=== PATIENT | female | born 1965 | race Caucasian/White ===

== ENCOUNTER 2025-08-20 07:56 | Outpatient (CLI) | payer BC, SELFPAY | END 2025-08-20 07:57 | disposition home or self-care (01) | LOC: AMB 08-24 16:01 | PROVIDERS: PCP Family Medicine; Visit Provider Emergency Medicine | DX: S89.91XA Unspecified injury of right lower leg, initial encounter (principal); W00.2XXA Other fall from one level to another due to ice and snow, initial encounter; Y92.9 Unspecified place or not applicable | CPT/HCPCS: A0425; A0427 ==

== ENCOUNTER 2025-08-20 08:29 | Emergency (ER) | payer BC, SELFPAY ==
[2025-08-20] VITALS (33 sets, daily range): BP systolic 113–149; BP diastolic 57–91; PULSE 56–73; RESP 7–26; TEMP 36.6; O2SAT 96–100; BMI 26.6
--- NOTE | 2025-08-20 08:55 | CRLHL7_ITS ---
For Patients: As a result of the Century Cures Act, medical imaging exams and procedure reports are released immediately into your electronic medical record. You may view this report before your referring provider. If you have questions, please contact your health care provider. Indication: Injury of right ankle. Technique: Right ankle 2 views. Comparison: None. Findings: Bones: Acute spiral fracture of the distal fibula with posterior displacement of the distal fracture fragment. Acute transverse fracture of the medial malleolus with anterior translation of the distal tibia relative to the talus measuring approximately 13 mm. The talar dome is intact. Plantar calcaneal enthesophyte. Joint spaces: Widening of the syndesmosis up to 9 mm.. Soft tissues: Moderate soft tissue swelling about ankle.. Impression: Hall type B distal fibular and medial malleolar fracture with anterior translocation of the tibiotalar joint and widening of the syndesmosis. Dictated by Ya Levi MD @ 08/20/2025 9:53:58 AM (Electronically Signed)
[2025-08-20] MEDS: 0.9 % SODIUM CHLORIDE 500 ML 500 ML IV (09:05)
--- NOTE | 2025-08-20 11:21 | ED.GENADULT ---
HPI - General Adult General Chief complaint: Extremity Pain/Injury, Lower <Pavan Sierra MD - Last Filed: 08/23/25 17:42> Stated complaint: R ankle injury <Pavan Sierra MD - Last Filed: 08/23/25 17:42> Time Seen by Provider: 08/20/25 08:33 <Pavan Sierra MD - Last Filed: 08/23/25 17:42> History of Present Illness HPI narrative: Pt was walking with other women in [place], slipped on ice but didn't fall , friends did assist to ground. Pt presents with RLE injury, still wearing boot. 25 intranasal fent and 4mg odt zofran admin by ems. Pt not allergic to pain medication but says she will vomit if we admin them. Only Rx is minoxidil/ finesteride for hair growth. 60-year-old woman brought to the emergency department via EMS after a slip and presumed right ankle injury. Was assisted to the ground by her friends with whom she had been walking. Slipped on ice apparently. Is evident that she has some outward rotation at the right ankle. Denies any other injuries. Pain in this right lower leg. No chest pain shortness of breath. She is clear that she did not hit her head. Has received fentanyl and Zofran. <Pavan Sierra MD - Last Filed: 08/23/25 17:42> Related Data Home medications: Previous Rx's ?Medication ?Instructions ?Recorded hydrocodone 5 mg-acetaminophen 325 1 - 2 tab PO Q4-6H PRN pain #15 08/20/25 mg tablet tabs ondansetron 4 mg disintegrating 4 mg PO Q4H PRN nausea and 08/20/25 tablet vomiting #12 tabs <Pavan Sierra MD - Last Filed: 08/23/25 17:42> Allergies/adverse reactions: Allergies Allergy/AdvReac Type Severity Reaction Status Date / Time Sulfa (Sulfonamide Allergy Verified 10/29/23 16:29 Antibiotics) <Pavan Sierra MD - Last Filed: 08/23/25 17:42> Review of Systems Status of ROS: Reports: 6 or more systems reviewed and unremarkable except as noted in History and below <Pavan Sierra MD - Last Filed: 08/23/25 17:42> PFSH [facility] Medical History: Medical History Plantar fascial fibromatosis ?M72.2 - Plantar fascial fibromatosis (ICD-10) Adenomatous colon polyp ?D12.6 - Benign neoplasm of colon, unspecified (ICD-10) Hypercholesteremia ?E78.00 - Pure hypercholesterolemia, unspecified (ICD-10) <Pavan Sierra MD - Last Filed: 08/23/25 17:42> Surgical History: Surgical History Hx of cervical polypectomy (12/2004) ?Z98.890 - Other specified postprocedural states (ICD-10) ?Z87.42 - Personal history of other diseases of the female genital tract (ICD-10) Previous section (1990) ?Z98.891 - History of uterine scar from previous surgery (ICD-10) Status post left foot surgery ?Z98.890 - Other specified postprocedural states (ICD-10) <Pavan Sierra MD - Last Filed: 08/23/25 17:42> Social History: Social History Smoking Status: Never smoker How often do you have a drink containing alcohol: monthly or less AUDIT-C Alcohol total score: 1 Non-prescribed substance use: denies use <Pavan Sierra MD - Last Filed: 08/23/25 17:42> Exam Narrative: Exam Narrative: Pleasant. Little sleepy perhaps. Head looks to be atraumatic. Heart in regular rate and rhythm. Lungs are clear. No pain to palpation of the extremities other than the right lower leg. Ankle with boots on on initial evaluation is outwardly rotated. Any manipulation of this does cause pain response. Oropharynx is a little sticky but unremarkable. No restriction of the posterior oropharynx. Examination later of the skin does show ankle swelling and deformity. There is some tenting of the skin in the medial malleolus. No breakdown in the skin <Pavan Sierra MD - Last Filed: 08/23/25 17:42> Const: Vital Signs, click to edit/add: Vital Signs - 24 hr 08/20/25 08:34 08/20/25 08:57 08/20/25 09:24 Temperature 97.8 F Pulse Rate 63 Pulse Rate [Left P ulse Oximeter] 73 Respiratory Rate 16 16 Blood Pressure 138/67 Blood Pressure [Le ft Upper Arm] 149/73 H Pulse Oximetry 100 99 98 Oxygen Delivery Me thod Room Air Room Air 08/20/25 09:25 08/20/25 09:30 08/20/25 09:41 Temperature Pulse Rate 63 60 57 L Pulse Rate [Left P ulse Oximeter] Respiratory Rate Blood Pressure 129/78 Blood Pressure [Le ft Upper Arm] Pulse Oximetry 99 99 99 Oxygen Delivery Me thod Room Air 08/20/25 09:45 08/20/25 10:00 Temperature Pulse Rate 56 L 56 L Pulse Rate [Left P ulse Oximeter] Respiratory Rate Blood Pressure Blood Pressure [Le ft Upper Arm] Pulse Oximetry 99 99 Oxygen Delivery Me thod <Pavan Sierra MD - Last Filed: 08/23/25 17:42> Vital Signs, click to edit/add: Vital Signs - 24 hr 08/20/25 08:34 08/20/25 08:57 08/20/25 09:24 Temperature 97.8 F Pulse Rate 63 Pulse Rate [Left P ulse Oximeter] 73 Respiratory Rate 16 16 Blood Pressure 138/67 Blood Pressure [Le ft Upper Arm] 149/73 H Pulse Oximetry 100 99 98 Oxygen Delivery Me thod Room Air Room Air 08/20/25 09:25 08/20/25 09:30 08/20/25 09:41 Temperature Pulse Rate 63 60 57 L Pulse Rate [Left P ulse Oximeter] Respiratory Rate Blood Pressure 129/78 Blood Pressure [Le ft Upper Arm] Pulse Oximetry 99 99 99 Oxygen Delivery Me thod Room Air 08/20/25 09:45 08/20/25 10:00 Temperature Pulse Rate 56 L 56 L Pulse Rate [Left P ulse Oximeter] Respiratory Rate Blood Pressure Blood Pressure [Le ft Upper Arm] Pulse Oximetry 99 99 Oxygen Delivery Me thod <Shiraz Roberson MD - Last Filed: 08/25/25 18:29> Documenting provider has reviewed patient's vital signs: yes <Pavan Sierra MD - Last Filed: 08/23/25 17:42> Course Vital Signs Vital signs: Initial Vital Signs Temperature 97.8 F 08/20/25 08:34 Temperature Source Temporal Artery Scan 08/20/25 08:34 Pulse Rate 73 08/20/25 08:34 Respiratory Rate 16 08/20/25 08:34 Blood Pressure 149/73 H 08/20/25 08:34 Blood Pressure Mean 98 08/20/25 08:34 Blood Pressure Position Supine 08/20/25 08:34 Pulse Oximetry 100 08/20/25 08:34 Oxygen Delivery Method Room Air 08/20/25 08:34 Vital Signs Temperature 97.8 F 08/20/25 08:34 Pulse Rate 73 08/20/25 08:34 Respiratory Rate 16 08/20/25 08:34 Blood Pressure 149/73 H 08/20/25 08:34 Pulse Oximetry 100 08/20/25 08:34 Oxygen Delivery Method Room Air 08/20/25 08:34 Temperature 97.8 F 08/20/25 08:34 Pulse Rate 70 08/20/25 12:47 Respiratory Rate 10 L 08/20/25 12:47 Blood Pressure 133/79 08/20/25 12:47 Pulse Oximetry 100 08/20/25 12:47 Oxygen Delivery Method Room Air 08/20/25 12:02 Oxygen Flow Rate 4 08/20/25 11:42 <Pavan Sierra MD - Last Filed: 08/23/25 17:42> Initial Vital Signs Temperature 97.8 F 08/20/25 08:34 Temperature Source Temporal Artery Scan 08/20/25 08:34 Pulse Rate 73 08/20/25 08:34 Respiratory Rate 16 08/20/25 08:34 Blood Pressure 149/73 H 08/20/25 08:34 Blood Pressure Mean 98 08/20/25 08:34 Blood Pressure Position Supine 08/20/25 08:34 Pulse Oximetry 100 08/20/25 08:34 Oxygen Delivery Method Room Air 08/20/25 08:34 Vital Signs Temperature 97.8 F 08/20/25 08:34 Pulse Rate 73 08/20/25 08:34 Respiratory Rate 16 08/20/25 08:34 Blood Pressure 149/73 H 08/20/25 08:34 Pulse Oximetry 100 08/20/25 08:34 Oxygen Delivery Method Room Air 08/20/25 08:34 Temperature 97.8 F 08/20/25 08:34 Pulse Rate 70 08/20/25 12:47 Respiratory Rate 10 L 08/20/25 12:47 Blood Pressure 133/79 08/20/25 12:47 Pulse Oximetry 100 08/20/25 12:47 Oxygen Delivery Method Room Air 08/20/25 12:02 Oxygen Flow Rate 4 08/20/25 11:42 <Shiraz Roberson MD - Last Filed: 08/25/25 18:29> Medications Administered Medications: Discontinued Medications Generic Name Dose Route Start Last Admin Trade Name Freq PRN Reason Stop Dose Admin Hydrocodone Bitart/Acetaminophen 2 tab 08/20/25 12:40 08/20/25 12:44 Hydrocodone-Acetamin 5-325 Mg 1 Tab PO 08/20/25 12:41 2 tab ONCE ONE Administration Fentanyl 100 mcg 08/20/25 08:55 08/20/25 09:05 Fentanyl 100 Mcg/2 Ml Inj IVP 08/20/25 08:56 100 mcg ONCE ONE Administration Fentanyl 50 mcg 08/20/25 10:31 08/20/25 10:36 Fentanyl 100 Mcg/2 Ml Inj IVP 08/20/25 10:32 50 mcg ONCE ONE Administration Fentanyl 50 mcg 08/20/25 12:01 08/20/25 12:05 Fentanyl 100 Mcg/2 Ml Inj IVP 08/20/25 12:02 50 mcg ONCE ONE Administration Sodium Chloride 500 mls @ 500 mls/hr 08/20/25 08:55 08/20/25 10:05 0.9 % Sodium Chloride 500 Ml IV 08/20/25 09:54 Infused .Q1H ONE Infusion Propofol 200 mg 08/20/25 11:28 08/20/25 11:40 Propofol 10 Mg/Ml Inj IVP 08/20/25 11:29 160 mg ONCE ONE Administration <Pavan Sierra MD - Last Filed: 08/23/25 17:42> Discontinued Medications Generic Name Dose Route Start Last Admin Trade Name Freq PRN Reason Stop Dose Admin Hydrocodone Bitart/Acetaminophen 2 tab 08/20/25 12:40 08/20/25 12:44 Hydrocodone-Acetamin 5-325 Mg 1 Tab PO 08/20/25 12:41 2 tab ONCE ONE Administration Fentanyl 100 mcg 08/20/25 08:55 08/20/25 09:05 Fentanyl 100 Mcg/2 Ml Inj IVP 08/20/25 08:56 100 mcg ONCE ONE Administration Fentanyl 50 mcg 08/20/25 10:31 08/20/25 10:36 Fentanyl 100 Mcg/2 Ml Inj IVP 08/20/25 10:32 50 mcg ONCE ONE Administration Fentanyl 50 mcg 08/20/25 12:01 08/20/25 12:05 Fentanyl 100 Mcg/2 Ml Inj IVP 08/20/25 12:02 50 mcg ONCE ONE Administration Sodium Chloride 500 mls @ 500 mls/hr 08/20/25 08:55 08/20/25 10:05 0.9 % Sodium Chloride 500 Ml IV 08/20/25 09:54 Infused .Q1H ONE Infusion Propofol 200 mg 08/20/25 11:28 08/20/25 11:40 Propofol 10 Mg/Ml Inj IVP 08/20/25 11:29 160 mg ONCE ONE Administration <Shiraz Roberson MD - Last Filed: 08/25/25 18:29> Medical Decision Making MDM Narrative Medical decision making narrative: I would anticipate suspect ankle fracture here with some degree of dislocation. Anticipate need for need for moderate to deep sedation and reduction. Repeating does of fentanyl to accomplish initial imaging. X-ray of the right ankle independently reviewed by me does show bimalleolar fracture with mortise disruption. Distal fibula with a spiral fracture and the medial malleolus of the tibia has transverse fracture of the majority of it with significant dislocation lateral and anterior Will need reduction. Did consult with anesthesia but due to timing of eating they were unable to assist beyond extremity block or intubation. I do have another provider coming in soon and can provide sedation at that time. Indication: Injury of right ankle. Technique: Right ankle 2 views. Comparison: None. Findings: Bones: Acute spiral fracture of the distal fibula with posterior displacement of the distal fracture fragment. Acute transverse fracture of the medial malleolus with anterior translation of the distal tibia relative to the talus measuring approximately 13 mm. The talar dome is intact. Plantar calcaneal enthesophyte. Joint spaces: Widening of the syndesmosis up to 9 mm.. Soft tissues: Moderate soft tissue swelling about ankle.. Impression: Hall type B distal fibular and medial malleolar fracture with anterior translocation of the tibiotalar joint and widening of the syndesmosis. Dictated by Ya Levi MD @ 08/20/2025 9:53:58 AM Informed consent obtained for ankle fracture dislocation reduction. Assisted by nursing and Radiology as well and Dr. Roberson for anesthesia. Radiology providing C-arm. Propofol sedation given. Please see Dr. Roberson's note for this procedural record Please see procedural note above for fracture reduction By my independent review C-arm x-ray images obtained show marked improvement with significantly improved realignment Tolerated quite well. I discussed this case with Orthopedics and anticipate outpatient follow-up this coming week to schedule surgical intervention See patient discharge plan for further discussion Will need to avoid bearing weight this right foot/ankle, using crutches to this end. You might receive a call tomorrow morning from Orthopedics to arrange follow-up. If you do not hear from them by noon I would go ahead and call [phone] to arrange follow-up next week. I did speak with JORDEN Grande today orthopedics. Prescribing [place] for pain and Zofran for nausea from [facility]. While it might make you tired, diphenhydramine pretreating your opiate can otherwise limit nausea. Can also take up to 1000 mg of acetaminophen or up to 800 mg of ibuprofen per dose; this can be combined with any of the above. Keep in mind that each tablet of [place] contains 325 mg of acetaminophen. Elevate your leg for comfort as well. Maybe ice packs behind your knee. Stay well-hydrated. (unfortunately we were out of [place] in the [facility] and so I have sent this to your pharmacy) <Pavan Sierra MD - Last Filed: 08/23/25 17:42> Medical Records Medical records reviewed: Yes I reviewed the patient's medical records <Pavan Sierra MD - Last Filed: 08/23/25 17:42> Discharge Plan Discharge Clinical Impression: Bimalleolar fracture of right ankle <Pavan Sierra MD - Last Filed: 08/23/25 17:42> Patient Disposition: Home w/ Parent or Adult <Pavan Sierra MD - Last Filed: 08/23/25 17:42> Condition: Improved <Pavan Sierra MD - Last Filed: 08/23/25 17:42> Additional Instructions: Will need to avoid bearing weight this right foot/ankle, using crutches to this end. You might receive a call tomorrow morning from Orthopedics to arrange follow-up. If you do not hear from them by noon I would go ahead and call [phone] to arrange follow-up next week. I did speak with JORDEN Grande today orthopedics. Prescribing [place] for pain and Zofran for nausea from [facility]. While it might make you tired, diphenhydramine pretreating your opiate can otherwise limit nausea. Can also take up to 1000 mg of acetaminophen or up to 800 mg of ibuprofen per dose; this can be combined with any of the above. Keep in mind that each tablet of [place] contains 325 mg of acetaminophen. Elevate your leg for comfort as well. Maybe ice packs behind your knee. Stay well-hydrated. (unfortunately we were out of [place] in the [facility] and so I have sent this to your pharmacy) <Pavan Sierra MD - Last Filed: 08/23/25 17:42> Prescriptions: New hydrocodone-acetaminophen 5-325 mg tablet 1 - 2 tab PO Q4-6H PRN (Reason: pain) Qty: 15 0RF ondansetron 4 mg tablet,disintegrating 4 mg PO Q4H PRN (Reason: nausea and vomiting) Qty: 12 0RF <Pavan Sierra MD - Last Filed: 08/23/25 17:42> Follow Up/Referrals: Constance Berg DO [Primary Care Provider, Family Practice] <Pavan Sierra MD - Last Filed: 08/23/25 17:42> Stand Alone Forms: MyHealth Info Instructions <Pavan Sierra MD - Last Filed: 08/23/25 17:42> Procedures Orthopedic Fracture Reduction Fracture #1: Written consent by: patient <Pavan Sierra MD - Last Filed: 08/23/25 17:42> Time Out Performed: Yes <Pavan Sierra MD - Last Filed: 08/23/25 17:42> Side: right <Pavan Sierra MD - Last Filed: 08/23/25 17:42> Fracture location: ankle <Pavan Sierra MD - Last Filed: 08/23/25 17:42> Analgesia: procedural sedation <Pavan Sierra MD - Last Filed: 08/23/25 17:42> Technique: direct manipulation and traction/counter-traction <Pavan Sierra MD - Last Filed: 08/23/25 17:42> Post Reduction X-rays Demonstrate: anatomical reduction <Pavan Sierra MD - Last Filed: 08/23/25 17:42> Post-reduction neuro exam: intact <Pavan Sierra MD - Last Filed: 08/23/25 17:42> Post-reduction vascular exam: intact <Pavan Sierra MD - Last Filed: 08/23/25 17:42> Splint Applied: Yes (Oneil Wills with posterior support) <Pavan Sierra MD - Last Filed: 08/23/25 17:42> Patient Tolerated Procedure: well and no complications <Pavan Sierra MD - Last Filed: 08/23/25 17:42> Procedural Sedation Pre procedure diagnosis: Right ankle fracture dislocation <Shiraz Roberson MD - Last Filed: 08/25/25 18:29> Written consent by: patient <Shiraz Roberson MD - Last Filed: 08/25/25 18:29> Verification/time out: correct patient, correct site, correct procedure and time out performed <Shiraz Roberson MD - Last Filed: 08/25/25 18:29> Name of person perfmorming the procedure: Shiraz Roberson <Shiraz Roberson MD - Last Filed: 08/25/25 18:29> Sedation provider same as procedural provider: No <Shiraz Roberson MD - Last Filed: 08/25/25 18:29> Indication: fracture/dislocation reduction <Shiraz Roberson MD - Last Filed: 08/25/25 18:29> ASA Class: II <Shiraz Roberson MD - Last Filed: 08/25/25 18:29> Time of Last PO Intake: 07:00 <Shiraz Roberson MD - Last Filed: 08/25/25 18:29> Mallampati classification: II. soft palate, fauces, uvula visible <Shiraz Roberson MD - Last Filed: 08/25/25 18:29> Preparation: monitoring specialist applied, pulse oximeter, capnometry used, supplemental O2 applied, reversal agents at bedside, suction/airway equipment at bedside and IV secured <Shiraz Roberson MD - Last Filed: 08/25/25 18:29> IV Propofol dose (mg): 160 (80 mg, 40 mg, 40 mg) <Shiraz Roberson MD - Last Filed: 08/25/25 18:29> Patient Tolerated Procedure: well <Shiraz Roberson MD - Last Filed: 08/25/25 18:29> Complications: none <Shiraz Roberson MD - Last Filed: 08/25/25 18:29>
--- NOTE | 2025-08-20 11:30 | CRLHL7_ITS ---
For Patients: As a result of the Century Cures Act, medical imaging exams and procedure reports are released immediately into your electronic medical record. You may view this report before your referring provider. If you have questions, please contact your health care provider. Indication: Right ankle reduction Technique: Two fluoroscopic images of the right ankle. Fluoroscopic time 11.2 seconds. Comparison: 08/20/2025 IMPRESSION: Fluoroscopic guidance for closed reduction. Improved alignment. Dictated by Pavan Delgado MD @ 08/20/2025 12:10:12 PM (Electronically Signed)
[2025-08-20] MEDS: PROPOFOL 10 MG/ML INJ 200 MG IVP (11:40)
[2025-08-20] MEDS: HYDROCODONE-ACETAMIN 5-325 MG 1 TAB 2 TAB PO (12:44)
--- NOTE | 2025-08-20 12:52 | ED.NURSE ---
40mg prop waste witness by BS, RN
== END 2025-08-20 13:00 | disposition home or self-care (01) ==
PROVIDERS: Emergency Provider Family Medicine; PCP Family Medicine
DX: S82.442A Displaced spiral fracture of shaft of left fibula, initial encounter for closed fracture (principal); S82.55XA Nondisplaced fracture of medial malleolus of left tibia, initial encounter for closed fracture; W00.0XXA Fall on same level due to ice and snow, initial encounter
CPT/HCPCS: 27788; 73600; 76000; 94761; 99156; 99281; 99285; A9270; J2704; J3010; J7030

== ENCOUNTER 2025-08-28 06:08 | Day surgery (SDC) | payer BC, SELFPAY ==
[2025-08-28] VITALS (14 sets, daily range): BP systolic 101–140; BP diastolic 57–87; PULSE 60–81; RESP 14–20; TEMP 36.3–36.8; O2SAT 94–100; BMI 26.6
[2025-08-28] MEDS: SODIUM CHLORIDE 0.9 % (FLUSH) 10 ML SYRINGE IVF (06:46)
[2025-08-28] MEDS: LACTATED RINGERS 1000 ML 1,000 ML 100 ML IV ×2 (06:46→08:35)
--- NOTE | 2025-08-28 07:04 | W.PM.H&PU ---
History & Physical Update History & Physical Update H&P Reviewed and patient assessed: No changes noted
--- NOTE | 2025-08-28 07:06 | PM.ORPRC ---
Procedure Note Date of procedure: 08/28/25 Procedure: PREOPERATIVE DIAGNOSES: 1. Right bimalleolar ankle fracture, closed, displaced POSTOPERATIVE DIAGNOSES: 1. Right bimalleolar ankle fracture, closed, displaced NAME OF OPERATION: 1. Right bimalleolar ankle fracture open reduction internal fixation SURGEON: Cullen Oakes MD FACTORY HAND: Isa Gipson P.A.-C.; An human services assistant was critical for this case to aide in patient positioning, leg manipulation, tissue retraction, closure, and splinting. ANESTHESIA: Spinal plus adductor canal and popliteal nerve blocks EBL: 10 mL IMPLANTS: Arthrex distal fibula locking plate with 3.0 mm distal locking, 3.5 mm proximal nonlocking screws, and 3.0 mm lag screws for distal fibula fixation; 4.0 mm partially threaded cannulated screws for medial malleolar fixation. TOURNIQUET: 91 minutes at 250 mmHg INDICATIONS: The patient is a pleasant 60-year-old female who sustained a right ankle injury in the recent past with difficulty bearing weight. Workup included x-rays, which revealed an unstable bimalleolar ankle fracture. Given the unstable nature of this injury, surgery was recommended to improve alignment and stablize the ankle. Prior to surgery, the risks and benefits of the procedure were discussed with the patient, all questions were answered, and informed consent was obtained. FINDINGS: Closed, displaced medial and lateral malleoli fractures. Intact syndesmosis. PROCEDURE: Patient seen preoperatively and operative site was marked. Regional nerve blocks performed by anesthesia staff. The patient was then brought to the operating room and spinal anesthesia was administered. She was then placed supine on the operating table. A tourniquet was placed on the patient's right thigh and right lower extremity was prepped and draped in usual sterile fashion. She was given 2 g IV Ancef preoperatively for prophylaxis. A surgical time-out was performed confirming patient identity, surgical site, and surgical procedure. The operative extremity was exsanguinated, and the tourniquet inflated. A longitudinal incision was made along the posterior border of the distal fibula. Incision was carried through the skin and subcutaneous tissues, while protecting any crossing neurologic structures. The fracture was encountered, and cleared of interposed periosteum and fracture hematoma. Fracture site was then thoroughly irrigated with normal saline. The fracture was reduced and temporarily held with reduction clamps. Arthrex distal fibular locking plate was provisionally fixed with BB tacks. Once confirming correct position, plate was then affixed proximally with a 3.5 mm nonlocking screw and distally with 3.0 mm unicortical locking screws. Two 3.0 mm screws were placed in anterior to posterior direction perpendicular to the fracture site in a lag fashion. Two additional proximal nonlocking bicortical screws were placed proximally and distal locking holes were filled with unicortical 3.0 mm locking screws. Fluoroscopic images were used to confirm appropriate plate position, and screw length. Attention was turned to the fixation of the medial malleolus fracture. A longitudinal incision was made overlying the medial malleolar fracture. Blunt dissection was utilized to dissect through the subcutaneous tissues to allow us to protect the crossing neurovascular structures. The fracture was identified and cleared of interposed periosteum and fracture hematoma. Fracture irrigated with normal saline. The fracture was reduced and held with a pointed reduction clamp. Joint surface was visualized confirmed to be in anatomic position. Two guide pins for the 4-0 cannulated screws were then drilled in a retrograde fashion across the fracture. Fluoroscopic imaging confirmed anatomic reduction of the fracture and good placement of the pins. The pins were then overdrilled and partially-threaded 4.0 mm cannulated screws were secured into position over the pins. Guide pins were removed. Fluoroscopic imaging confirmed anatomic reduction with good compression and good placement of the screws. After confirming appropriate reduction and positioning of the plate and screws using fluoroscopic imaging, an external rotation stress was placed on the ankle to test for syndesmosis stability. External rotation stress imaging revealed an intact syndesmosis with symmetric mortise and no widening of the syndesmosis. At this stage, the wounds were thoroughly irrigated with normal saline. Laterally, deep fascia and arthrotomy were closed with 0 Vicryl [id number] interrupted sutures. The tourniquet was then released. Total tourniquet time was 91 minutes. Hemostasis was achieved electrocautery. Skin incisions were then closed with 3-0 Vicryl inverted after subcutaneous stitches followed by running 3-0 nylon stitches. Sterile dressings and a well-padded short-leg splint were applied. The patient was awoken from anesthesia and transferred to the PACU in stable condition. PLAN: 1. Ice and elevation of operative extremity for pain and swelling. 2. Tylenol and oxycodone as needed for pain. 3. Toe-touch weight-bearing operative extremity. 4. Keep splint clean and dry. 5. Follow up in Orthopedic Clinic in 10-14 days for wound check and splint removal.
[2025-08-28] MEDS: MIDAZOLAM HCL 1 MG/ML inj IVP (07:15)
--- NOTE | 2025-08-28 07:15 | CRLHL7_ITS ---
For Patients: As a result of the Cures Act, medical imaging exams and procedure reports are released immediately into your electronic medical record. You may view this report before your referring provider. If you have questions, please contact your health care provider. Indication: Right Ankle ORIF Technique: Four fluoroscopic images of the right ankle. Fluoroscopic time 55.2 seconds. IMPRESSION: Fluoroscopic guidance for open reduction internal fixation of distal tibial and distal fibular fractures. Dictated by Pavan Delgado MD @ 08/28/2025 9:51:42 AM (Electronically Signed)
--- NOTE | 2025-08-28 07:23 | SUR.PREOP ---
TIME?OUT:? right ankle, 0714 PT/RN/MDA?VERIFICATION?OF?SURGICAL?SITE,?PROCEDURE,?AND?CONSENT OBTAINED?PRIOR?TO?INVASIVE?PROCEDURE.
--- NOTE | 2025-08-28 08:49 | P.NB_ITS ---
Nerve Block Nerve Block Time Seen by Provider: 07:24 Date Seen: 08/28/25 Type of block requested by surgeon for post-operative analgesia: popliteal Side: right Time out performed: Yes Verification of patient name: Yes Verification of date of : Yes Site marking: site marked Name of person performing procedure: Jeromy Continuous monitoring Was continuous monitoring of O2 sat, B/P, clinical research monitor, recorded every 15 minutes?: Yes Procedure Checklist: sterile prep, needles and gloves Ultrasound guided. Images saved: Yes Medications given in 5ml increments after negative aspiration: Marcaine %: 0.25 mL: 13 Needle gauge: 20 and Exparel mL: 7 Patient tolerated procedure well: Yes Additional comments: Needle noted adjacent to nerve Block Charges Block Charge (with Pro Fee): Sciatic Nerve Use of Ultrasound Machine for Block: Yes- US Guidance/pain block
--- NOTE | 2025-08-28 08:49 | W.PM.NB ---
Nerve Block Nerve Block Time Seen by Provider: 07:24 Date Seen: 08/28/25 Type of block requested by surgeon for post-operative analgesia: adductor canal Side: right Time out performed: Yes Verification of patient name: Yes Verification of date of : Yes Site marking: site marked Name of person performing procedure: Jeromy Continuous monitoring Was continuous monitoring of O2 sat, B/P, international tax manager, recorded every 15 minutes?: Yes Procedure Checklist: sterile prep, needles and gloves Ultrasound guided. Images saved: Yes Medications given in 5ml increments after negative aspiration: Marcaine %: 0.25 mL: 12 Needle gauge: 20, Exparel mL: 3 and Ropivicaine Patient tolerated procedure well: Yes Block Charges Block Charge (with Pro Fee): Femoral Nerve Use of Ultrasound Machine for Block: Yes- US Guidance/pain block
--- NOTE | 2025-08-28 10:15 | P.ANES_ITS ---
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
--- NOTE | 2025-08-28 10:15 | W.ANESCHARGE ---
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
--- NOTE | 2025-08-28 10:23 | SUR.PHASEI ---
Patient awake and appropriate, no nausea or pain, states her throat is a little sore and dry. Ice chips given
--- NOTE | 2025-08-28 10:38 | SUR.PHASEI ---
Patient awake and comfortable. Patient meets discharge criteria from PACU.
--- NOTE | 2025-08-28 11:25 | SUR.OPER ---
PATIENT QUESTIONS ANSWERED SATISFACTORILY PREOPERATIVELY.? PATIENT BROUGHT TO OR #3 PER CART AFTER ADMINISTRATION OF A BLOCK.? Patient positioned supine on OR #3 bed.? The perioperative?team supported arms bilaterally on arm boards.? Final approval of positioning by surgeon.?
== END 2025-08-28 12:08 | disposition home or self-care (01) ==
LOC: OR 06:09
PROVIDERS: PCP Family Medicine; Visit Provider Orthopaedic Surgery
PROC: (CPT 27814; principal; 2025-08-28 07:15)
DX: S82.841A Displaced bimalleolar fracture of right lower leg, initial encounter for closed fracture (principal); G89.18 Other acute postprocedural pain
CPT/HCPCS: 27814; 01480; 64445; 64447; 73600; 76942; C1713; J0665; J0666; J0690; J1100; J2250; J2371; J2405; J2704; J3010; J7120